=== PATIENT | female | born 1955 | race American Indian/Alaskan Native ===

== ENCOUNTER 2018-01-21 07:34 | Day surgery (SDC) | payer OTHER ==
[2018-01-13 09:14] VITALS: BMI 31.8
[~2018-01-21 07:34] MED LIST: Ciprofloxacin 0.3% OPTH SOLN OS SCH; Flurbiprofen 0.03% Opht SOLN OS SCH; Lactated Ringer's 500 ML IV ONE; Phenylephrine 2.5% Opht Soln OS SCH; Tropicamide 1% Opht SOLUTION OS SCH; acetaZOLAMIDE 500 mg SR Cap PO ONE
[2018-01-21] MEDS ORDERED: Lactated Ringer's 500 ML IV ONE (08:30)
[2018-01-21] MEDS ORDERED: (Novolin R) Insulin Human Regular 100 units/ml vial IV ONE (09:00)
[2018-01-21] MEDS ORDERED: (Novolin R) Insulin Human Regular 100 units/ml vial ONE (09:07)
[2018-01-21] MEDS: Chondroitin/Hyaluronate Opth Syringe KIT (0.55 ml-0.5 ml) IO ONE ×2 (09:41→11:05)
[2018-01-21] MEDS: Hyaluronidase Human, Recombi 150 U/ML VIAL ONE ×2 (09:42→11:05)
[2018-01-21] MEDS: Carbachol 0.01% IO ONE ×2 (09:42→11:05)
[2018-01-21] MEDS: Tobramycin/Dexamethasone OPHT OINT ONE ×2 (09:47→11:05)
[2018-01-21] MEDS ORDERED: Midazolam 2 MG/2 ML VIAL ONE (10:37)
[2018-01-21 11:25] VITALS: TEMP 97.5
[2018-01-21] MEDS ORDERED: acetaZOLAMIDE 500 mg SR Cap PO ONE ×2 (11:33→11:45)
[2018-01-21 11:48] VITALS: RESP 19; O2SAT 98
[2018-01-21 13:00] VITALS: BP 103/61; PULSE 71
--- NOTE | 2018-01-21 19:09 | OP ---
PROCEDURE DATE: 01/21/2018 PREOPERATIVE DIAGNOSIS: Cataract, left eye. POSTOPERATIVE DIAGNOSIS: Cataract, left eye. PROCEDURE: Phacoemulsification of left eye, insertion of posterior chamber implant. SURGEON: Chino Farris MD CO-SURGEON: Jt Le MD TYPE OF ANESTHESIA: Local with IV sedation. PROCEDURE: The patient was brought into the operating room, placed in supine position, prepped and draped in the usual fashion for ophthalmic surgery. Lid speculum was inserted, lids and exposing globe. A side-port incision was made superiorly and inferiorly with a disposable sharp blade. Anterior chamber was filled with Viscoat. A near clear corneal incision was made temporally with a 2.75-mm keratome. Capsulorrhexis was then performed with Utrata forceps. Hydrodissection carried out with balanced salt solution. Nucleus was phacoemulsified. Remaining cortical fragments were removed with a split irrigation and aspiration system. The capsular sac was filled with Provisc. A posterior chamber lens was then injected into the capsular sac and rotated into horizontal position. Provisc was aspirated out of the anterior chamber. The pupil was constricted with Miochol. The wound was found to be watertight. Topical Betadine, Timoptic, and TobraDex ointment and pressure patch were applied. The patient tolerated the procedure well. Chino Farris MD
== END 2018-01-21 12:27 | disposition home or self-care (01) ==
LOC: C.SDS 07:34
PROVIDERS: ATTEND Ophthalmology
DX: H25.12 Age-related nuclear cataract, left eye (principal)
CPT/HCPCS: 66984; 82948; J2250; J3010; J3470; J7120

== ENCOUNTER 2018-03-25 08:11 | Day surgery (SDC) | payer OTHER ==
[2018-01-13 09:14] VITALS: BMI 31.8
[~2018-03-25 08:11] MED LIST changes: +Carbachol 0.01% IO ONE; +Chondroitin/Hyaluronate Opth Syringe KIT (0.55 ml-0.5 ml) IO ONE; +Ciprofloxacin 0.3% OPTH SOLN OD SCH; -Ciprofloxacin 0.3% OPTH SOLN OS SCH; +Flurbiprofen 0.03% Opht SOLN OD SCH; -Flurbiprofen 0.03% Opht SOLN OS SCH; +Hyaluronidase Human, Recombi 150 U/ML VIAL ONE; +Lidocaine 2% MPF (5 ml) Inj ONE; +Lidocaine Hydrochloride 0 ML INJ ONE; +Phenylephrine 2.5% Opht Soln OD SCH; -Phenylephrine 2.5% Opht Soln OS SCH; +Povidone Iodine Ophthalmic 5% Soln ONE; +Tetracaine 0.5% Ophth (OR ONLY) ONE; +Tobramycin/Dexamethasone OPHT OINT ONE; +Tropicamide 1% Opht SOLUTION OD SCH; -Tropicamide 1% Opht SOLUTION OS SCH
[2018-03-25] MEDS ORDERED: Lactated Ringer's 500 ML IV ONE (09:20)
[2018-03-25] MEDS ORDERED: (Novolin R) Insulin Human Regular 100 units/ml vial ONE ×3 (09:33→11:01)
[2018-03-25 09:53] VITALS: RESP 18; TEMP 97.6
[2018-03-25] MEDS ORDERED: (Novolin R) Insulin Human Regular 100 units/ml vial IV ONE (10:38)
[2018-03-25 11:51] VITALS: BP 128/81; PULSE 87; O2SAT 100
== END 2018-03-25 12:02 | disposition home or self-care (01) ==
LOC: C.SDS 08:11
PROVIDERS: ATTEND Ophthalmology
DX: H25.11 Age-related nuclear cataract, right eye (principal); Z53.09 Procedure and treatment not carried out because of other contraindication; R73.9 Hyperglycemia, unspecified
CPT/HCPCS: 66984; 82948; J7120